=== PATIENT | male | born 1975 | race Caucasian/White ===

== ENCOUNTER 2017-01-13 12:54 | Inpatient (IN) | payer MEDICAID, OTHER ==
[~2017-01-13] VITALS: Ht 175.3 cm; Wt 220.9 kg
[~2017-01-13 12:54] MED LIST: IBUP-1506 PO
[2017-01-13] MEDS ORDERED: GEMF600T3 PO (13:22)
[2017-01-13] MEDS ORDERED: MUPI22OI2 TP (13:22)
[2017-01-13 13:50] LABS: BASOPHILS # (AUTO) 0.04 K/uL (0.00-0.20); BASOPHILS % (AUTO) 0.4 % (0.0-2.0); EOSINOPHILS # (AUTO) 0.02 K/uL (0.00-0.70); HEMATOCRIT 42.5 % (41-53); HEMOGLOBIN 14.1 g/dL (13.5-17.5); LYMPHOCYTES % (AUTO) 11.8 % (22.0-44.0); MEAN CORPUSCULAR HEMOGLOBIN 29.3 pg (26.0-34.0); MEAN CORPUSCULAR HGB CONC 33.1 G/dL (31.0-37.0); MEAN CORPUSCULAR VOLUME 89 fL (80-100); MONOCYTES # (AUTO) 0.8 K/uL (0.1-1.0); MONOCYTES % (AUTO) 9.4 % (2.0-9.0); NEUTROPHILS # (AUTO) 6.6 K/uL (1.8-7.7); NEUTROPHILS % (AUTO) 78.1 % (40.0-70.0); PLATELET COUNT (AUTO) 205 K/uL (150-450); RED BLOOD CELL COUNT(AUTO) 4.79 MIL/uL (4.50-5.90); RED CELL DISTRIBUTION WIDTH 14.3 % (11.5-14.5); WHITE BLOOD COUNT (AUTO) 8.4 K/uL (4.5-11.0)
[2017-01-13 14:02] LABS: ANION GAP 11 mmol/L (8-16); CALCIUM, TOTAL 8.7 mg/dL (8.8-10.5); CARBON DIOXIDE 25 mmol/L (22-29); CHLORIDE 98 mmol/L (98-107); CREATININE 1.24 mg/dL (0.60-1.30); GLOMERULAR FILTR. RATE CALC > 60 mL/min (>60); POTASSIUM 3.4 mmol/L (3.5-5.1); SODIUM SERUM 134 mmol/L (136-145); UREA NITROGEN, BLOOD 8 mg/dL (7-18)
[2017-01-13 14:08] LABS: ALANINE AMINOTRANSFERASE 93 U/L (12-78); ALBUMIN 4.1 g/dL (3.4-5.0); ASPARTATE AMINOTRANSFERASE 182 U/L (15-37); BILIRUBIN,TOTAL 0.6 mg/dL (0.1-1.0); TOTAL PROTEIN, SERUM 8.3 g/dL (6.4-8.2)
[2017-01-13] MEDS ORDERED: HALOPERIDOL 5 MG TABLET PO ONE (16:15)
[2017-01-13] MEDS ORDERED: ZOLPIDEM TARTRATE 10 MG TABLET PO PRN (17:00)
[2017-01-13] MEDS ORDERED: HALOPERIDOL 5 MG TABLET PO PRN (17:00)
[2017-01-13] MEDS ORDERED: LORazepam 2 MG TABLET PO PRN (17:00)
[2017-01-13 17:30] LABS: CHOL/HDL RATIO 3.6 (4.2-7.3)
[2017-01-13 22:03] VITALS: BP 135/83
[2017-01-13] MEDS ORDERED: INFLUENZA VIRUS VACCINE QVS 2017-18 (3YR+)/PF 60 MCG/0.5 ML SYRINGE IM ONE (22:15)
[2017-01-14] MEDS ORDERED: LOPERAMIDE HCL 2 MG CAPSULE PO PRN (09:00)
[2017-01-14] MEDS ORDERED: POTASSIUM CHLORIDE 20 MEQ ER TABLET PO ONE (09:00)
[2017-01-14] MEDS ORDERED: MAGNESIUM HYDROXIDE SUSPENSION 30 ML UDCUP PO PRN (09:00)
[2017-01-14] MEDS ORDERED: ONDANSETRON HCL 4 MG TABLET PO PRN (09:00)
[2017-01-14] MEDS ORDERED: MAG HYDROX/AL HYDROX/SIMETH ES 30 ML SUSPENSION UDCUP PO PRN (09:00)
[2017-01-14] MEDS ORDERED: BENZOCAINE/MENTHOL LOZENGE MM PRN (09:00)
[2017-01-14] MEDS ORDERED: PETROLATUM,WHITE 71 GM JELLY TP PRN (09:00)
[2017-01-14] MEDS ORDERED: IBUPROFEN 600 MG TABLET PO PRN (09:00)
[2017-01-14] MEDS ORDERED: CloNIDine HCL 0.1 MG TABLET PO PRN (09:00)
[2017-01-14] MEDS ORDERED: ALBUTEROL SULFATE HFA 90 MCG/PUFF 8 GM INHALER IH PRN (09:00)
[2017-01-14] MEDS ORDERED: ACETAMINOPHEN 325 MG TABLET PO PRN (09:00)
[2017-01-14] MEDS ORDERED: BACITRACIN 28.4 GM OINTMENT TP PRN (09:00)
[2017-01-14 11:22] VITALS: BP 135/83
[2017-01-14 16:18] VITALS: BP 140/82
[2017-01-15 00:30] VITALS: BP 149/70
[2017-01-15 07:56] LABS: POTASSIUM 3.8 mmol/L (3.5-5.1)
[2017-01-15 08:13] LABS: HEMOGLOBIN A1C 6.5 % (4.5-6.2)
[2017-01-15 08:22] VITALS: BP 130/89
[2017-01-15] MEDS: OLANZapine 5 MG RAPDIS TABLET PO SCH ×2 (09:57→16:21)
[2017-01-15 16:47] VITALS: BP 135/91
[2017-01-16 00:35] VITALS: BP 129/77
[2017-01-16 07:52] LABS: HEPATITIS Bs ANTIGEN SCREEN P Negative (Negative); HEPATITIS C AB SCREEN <0.1 s/co ratio (0.0-0.9)
[2017-01-16 09:00] VITALS: BP 124/74
[2017-01-16] MEDS: OLANZapine 5 MG RAPDIS TABLET PO SCH ×2 (09:37→16:18)
[2017-01-16 16:38] VITALS: BP 155/95
[2017-01-16] MEDS ORDERED: OLAN5TAB40 PO (16:51)
== END 2017-01-16 17:25 | disposition home or self-care (01) | DRG 750 ==
LOC: EMS 12:59 → AHU 20:46 → B2S 01-14 08:15
DX: F25.1 Schizoaffective disorder, depressive type (principal); E87.1 Hypo-osmolality and hyponatremia; R45.851 Suicidal ideations; I10 Essential (primary) hypertension; E66.2 Morbid (severe) obesity with alveolar hypoventilation; E87.6 Hypokalemia; F15.10 Other stimulant abuse, uncomplicated; F17.210 Nicotine dependence, cigarettes, uncomplicated; F22 Delusional disorders; F41.9 Anxiety disorder, unspecified; G47.00 Insomnia, unspecified; J44.9 Chronic obstructive pulmonary disease, unspecified; R74.0 Nonspecific elevation of levels of transaminase and lactic acid dehydrogenase [LDH]; Z28.21 Immunization not carried out because of patient refusal; Z59.0 Homelessness
CPT/HCPCS: 80074; 82306; 83036; 84132; 84295; 99285; G0480